=== PATIENT | female | born 1990 | race Caucasian/White ===

== ENCOUNTER 2017-07-01 21:18 | Outpatient (CLI) | payer OTHER | END 2017-07-02 15:07 | disposition home or self-care (01) | LOC: OBS/DEL 21:18 | DX: O60.03 Preterm labor without delivery, third trimester (principal); Z34.03 Encounter for supervision of normal first pregnancy, third trimester ==

== ENCOUNTER → 2017-07-27 | Outpatient (CLI) | payer OTHER | END | disposition left against medical advice (07) | LOC: OBS/DEL 00:17 | DX: O26.893 Other specified pregnancy related conditions, third trimester (principal); H53.131 Sudden visual loss, right eye; Z34.03 Encounter for supervision of normal first pregnancy, third trimester ==

== ENCOUNTER 2020-06-23 11:30 | Inpatient (IN) | payer OTHER ==
[~2020-06-23] VITALS: Ht 175.3 cm; Wt 107.0 kg
[2020-06-23] MEDS ORDERED: TUMS PO (15:35)
[2020-06-23] MEDS ORDERED: PRENAT PO (15:35)
[2020-06-23] MEDS ORDERED: ADULT LOW DOSE81 M1 PO (15:35)
[2020-06-28] MEDS ORDERED: ATABEX OB TABL1 EACH PO (13:38)
== END 2020-07-01 19:25 | disposition home or self-care (01) | DRG 785 ==
LOC: O/R 06-28 10:29 → OB/GYN 06-28 11:30
PROVIDERS: ADMIT Obstetrics & Gynecology; ATTEND Obstetrics & Gynecology
PROC: 0UB70ZZ Excision of Bilateral Fallopian Tubes, Open Approach (ICD-10-PCS; 2020-06-28)
PROC: 4A1HXFZ Monitoring of Products of Conception, Cardiac Rhythm, External Approach (ICD-10-PCS; 2020-06-28)
PROC: 10D00Z1 Extraction of Products of Conception, Low, Open Approach (ICD-10-PCS; principal; 2020-06-28 13:00)
DX: O65.5 Obstructed labor due to abnormality of maternal pelvic organs (principal); O34.211 Maternal care for low transverse scar from previous cesarean delivery; Z3A.39 39 weeks gestation of pregnancy; Z37.0 Single live birth; Z30.2 Encounter for sterilization